=== PATIENT | male | born 1970 | race Two or more races ===

== ENCOUNTER 2016-06-26 17:53 | Emergency (ER) | payer OTHER ==
[~2016-06-26] VITALS: Ht 175.3 cm; Wt 83.9 kg
--- NOTE | 2016-06-26 17:55 | NUR ---
PT BB[facility] FROM HOME CC LEFT 3RD DIGIT LACERATION FROM SAW. PLACED ON MONITOR. AWAITING MD ORDER.
[2016-06-26] MEDS ORDERED: LIDOCAINE HCL/PF 1% 30 ML SDV ONE (18:20)
[2016-06-26] MEDS ORDERED: TDAP [DIPH/PERTUSSIS/TET] 0.5 ML VIAL IM ONE ×2 (18:21→18:30)
[2016-06-26] MEDS ORDERED: LIDOCAINE HCL/PF 1% 30 ML VIAL TP ONE (18:30)
--- NOTE | 2016-06-26 19:15 | NUR ---
GAVE REPORT TO JAZZ WINCHESTER FOR CHANGE OF SHIFT.
--- NOTE | 2016-06-26 19:20 | NUR ---
PT REPORT RECIVED FROM KALIE WINCHESTER, PT IN BED, ON MONITOR, LOVE TRAOneil AT BEDSIDE MD MADE AWARE WILL CONTINUE TO MONITOR.
[2016-06-26 20:34] VITALS: BP 128/74
== END 2016-06-26 20:35 | disposition home or self-care (01) ==
LOC: ER 17:56
DX: S62.633B Displaced fracture of distal phalanx of left middle finger, initial encounter for open fracture (principal); S61.313A Laceration without foreign body of left middle finger with damage to nail, initial encounter; F17.200 Nicotine dependence, unspecified, uncomplicated; W27.8XXA Contact with other nonpowered hand tool, initial encounter; Y93.89 Activity, other specified; Y92.89 Other specified places as the place of occurrence of the external cause; Y99.9 Unspecified external cause status
CPT/HCPCS: 11760; 73140; 90471; 90715; 99284; A4606; A6402; J3490 ×2; Z7610